=== PATIENT | female | born 2000 | race Hispanic/Latino ===

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

== ENCOUNTER 2021-03-12 19:55 | Emergency (ER) | payer OTHER, SELFPAY ==
[2021-03-12 19:59] VITALS: BP 130/84; PULSE 109; RESP 16; TEMP 37.1; O2SAT 99; BMI 28.3
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
--- NOTE | 2021-03-12 20:13 | ED_ITS ---
HPI - Chest Pain General Chief Complaint: Chest Pain Stated Complaint: chest pain Time Seen by Provider: 03/12/21 19:59 Source: patient Mode of arrival: Ambulatory Limitations: no limitations History of Present Illness HPI narrative: 21F nonsmoker with history of asthma presents with her family and the chief complaint of a reproducible, sharp and stabbing chest pain over the course of the day. She states it seems to last a few seconds to minutes and then goes away without any obvious provocation or palliation. She's no fever or chills. She denies exertional symptoms. She denies recent travel, use of control or history of clot. Related Data Previous Rx's Medication Instructions Recorded albuterol sulfate 90 mcg/actuation 0 INH Q4HP PRN #1 inh 11/13/15 aerosol inhaler (Ventolin HFA) albuterol sulfate 90 mcg/actuation 0 puff INH Q4HP PRN #1 ea 04/28/17 aerosol inhaler (Ventolin HFA) oseltamivir 75 mg capsule 75 mg PO BID #9 cap 04/28/17 albuterol sulfate 90 mcg/actuation 2 puff INHALATION Q4H PRN #1 each 03/12/21 breath activated powder inhaler Allergies Allergy/AdvReac Type Severity Reaction Status Date / Time No Known Drug Allergies Allergy Verified 11/05/20 18:06 Review of Systems Review of Systems Narrative: GENERAL: Denies chills, fatigue, malaise, fever, sweats. HEENT: Denies sinus pain, ear pain, sore throat, difficulty swallowing, dizziness. RESPIRATORY: Denies dyspnea, cough, wheezing, hemoptysis, sputum. CARDIOVASCULAR: See HPI GASTROINTESTINAL: Denies nausea, vomiting, abdominal pain, diarrhea, constipation, melena. : Denies dysuria, frequency, incontinence, hematuria, urinary retention. MUSCULOSKELETAL: denies weakness, joint pain, or bony pain SKIN: Denies rash, skin lesions, or other NEUROLOGIC: Denies weakness, headache, numbness, change in speech, confusion, seizures, incoordination. PSYCHIATRIC: No concerning psychosocial issues. 12 point review of systems is negative except for those stated above Patient History Social History Smoking Status: Never smoker Smoking Status: Never smoker alcohol intake frequency: 0-2 drinks per day Substance Use Type: does not use Exam Narrative Exam Narrative: GENERAL: [21] year old patient appears stated age. Well-developed patient, in mild distress. HEAD: Atraumatic. Normocephalic. EYES: Pupils equal round and reactive. Extraocular motions intact. No scleral icterus. No injection or drainage. ENT: Nose without bleeding, purulent drainage. Throat without erythema, tonsillar hypertrophy or exudate. Airway patent. NECK: Trachea midline. Non tender CARDIOVASCULAR: Regular rate and rhythm without murmurs, gallops, or rubs. RESPIRATORY: Clear to auscultation. Breath sounds equal bilaterally. No wheezes, rales, or rhonchi. GASTROINTESTINAL: Abdomen soft, non-tender, nondistended. EXTREMITIES: No edema or joint tenderness. BACK: Nontender without deformity or crepitance. No flank tenderness. NEURO: AOx3. SKIN: No rash or erythema of visible areas Initial Vital Signs Initial Vital Signs: Vital Signs Temperature 98.7 F 03/12/21 19:59 Pulse Rate 109 H 03/12/21 19:59 Respiratory Rate 16 03/12/21 19:59 Blood Pressure 130/84 03/12/21 19:59 Pulse Oximetry 99 03/12/21 19:59 Course Orders Ordered: Discontinued Medications Sodium Chloride (Normal Saline 0.9%) 500 mls @ 1,000 mls/hr IV BOLUS ONE Stop: 03/12/21 21:51 Last Infusion: 03/12/21 22:06 Dose: 0 mls/hr Documented by: Admin: 03/12/21 21:31 Dose: 1,000 mls/hr Documented by: AKILA Ketorolac Tromethamine (Ketorolac 30 Mg/Ml Vial) 15 mg IV NOW ONE Stop: 03/12/21 21:23 Last Admin: 03/12/21 21:31 Dose: 15 mg Documented by: AKILA Vital Signs Vital signs: Vital Signs - 8 hr 03/12/21 19:59 Temperature 98.7 F Pulse Rate 109 H Respiratory Rate 16 Blood Pressure 130/84 Pulse Oximetry 99 MDM - Chest Pain Lab Data Result diagrams: 03/12/21 20:30 03/12/21 20:30 Labs: Lab Results 03/12/21 03/12/21 03/12/21 Range/Units 20:30 20:30 20:30 WBC 8.6 (4.5-11.0) X10^3/uL RBC 4.01 (4.0-5.2) X10^6/uL Hgb 13.4 (12.0-16.0) g/dL Hct 38.1 (36-46) % MCV 95.2 (80-100) fL MCH 33.4 (26-34) PG MCHC 35.1 (30-36) % RDW 12.1 (11.6-14.8) % Plt Count 227 (150-400) X10^3/uL Neut % (Auto) 47.5 L (50-75) % Lymph % (Auto) 41.4 H (25-40) % Free[place] % (Auto) 8.2 (3-14) % Eos % (Auto) 2.4 (2-4) % Baso % (Auto) 0.5 (0-2) % Neut # (Auto) 4100 (9154-0786) /uL Lymph # (Auto) 3600 (7135-1825) /uL [place] # (Auto) 700 (0-900) /uL Eos # (Auto) 200 (0-450) /uL Baso # (Auto) 0 (0-100) /uL ESR 23 H (0-20) MM/HR D-Dimer (<230) ng/mL Sodium 141 (137-145) mmol/L Potassium 3.8 (3.4-5.1) mmol/L Chloride 107 (98-107) mmol/L Carbon Dioxide 27 (22-32) mmol/L BUN 9 (7-17) mg/dL Creatinine 0.57 (0.52-1.04) mg/dL Estimated GFR > 60.0 (>60) mL/min BUN/Creatinine Ratio 15.8 (6-22) Glucose 111 H (70-100) mg/dL Calcium 9.5 (8.4-10.2) mg/dL Total Bilirubin 0.8 (0.2-1.3) mg/dL AST 23 (14-36) IU/L ALT 17 (<35) IU/L Alkaline Phosphatase 90 (38-126) U/L Total Creatine Kinase 73 (30-135) U/L CK-MB (CK-2) TNP CK-MB (CK-2) Rel Index TNP Troponin I < 0.012 (0.01-0.034) ng/mL C-Reactive Protein (<1.0) mg/dL Total Protein 7.6 (6.3-8.2) g/dL Albumin 4.4 (3.5-5.0) g/dL Globulin 3.2 (1.7-4.1) g/dL Albumin/Globulin Ratio 1.4 (1.0-2.8) Lipase 91 (23-300) U/L 03/12/21 03/12/21 Range/Units 20:30 20:30 WBC (4.5-11.0) X10^3/uL RBC (4.0-5.2) X10^6/uL Hgb (12.0-16.0) g/dL Hct (36-46) % MCV (80-100) fL MCH (26-34) PG MCHC (30-36) % RDW (11.6-14.8) % Plt Count (150-400) X10^3/uL Neut % (Auto) (50-75) % Lymph % (Auto) (25-40) % Free[place] % (Auto) (3-14) % Eos % (Auto) (2-4) % Baso % (Auto) (0-2) % Neut # (Auto) (5568-1981) /uL Lymph # (Auto) (1487-7155) /uL [place] # (Auto) (0-900) /uL Eos # (Auto) (0-450) /uL Baso # (Auto) (0-100) /uL ESR (0-20) MM/HR D-Dimer < 200 (<230) ng/mL Sodium (137-145) mmol/L Potassium (3.4-5.1) mmol/L Chloride (98-107) mmol/L Carbon Dioxide (22-32) mmol/L BUN (7-17) mg/dL Creatinine (0.52-1.04) mg/dL Estimated GFR (>60) mL/min BUN/Creatinine Ratio (6-22) Glucose (70-100) mg/dL Calcium (8.4-10.2) mg/dL Total Bilirubin (0.2-1.3) mg/dL AST (14-36) IU/L ALT (<35) IU/L Alkaline Phosphatase (38-126) U/L Total Creatine Kinase (30-135) U/L CK-MB (CK-2) CK-MB (CK-2) Rel Index Troponin I (0.01-0.034) ng/mL C-Reactive Protein < 0.5 (<1.0) mg/dL Total Protein (6.3-8.2) g/dL Albumin (3.5-5.0) g/dL Globulin (1.7-4.1) g/dL Albumin/Globulin Ratio (1.0-2.8) Lipase (23-300) U/L MDM Narrative Medical decision making narrative: Multiple causes of chest pain considered including [place], PE, pneumothorax, pneumonia, aortic dissection, and pleurisy. Patient reports no radiation, no diaphoresis, no provocation with exertion, and no vomiting Patient's symptoms improved over duration of stay with above-stated therapies. Findings and discharge diagnosis discussed with patient/family followed by verbalization of understanding Return precautions discussed with patient/family whom verbalize understanding. Discharge Plan Departure Patient Disposition: Home Clinical Impression: Atypical chest pain Instructions: DI for Atypical Chest Pain Activity Restrictions/Additional Instructions: *You have been diagnosed with [atypical chest pain. Your history, physical exam, EKG and labs are very reassuring. There is no evidence of heart attack blood clot or pneumonia. *What to do: *Please continue to take your regular medications as directed. [ ] New medication prescriptions sent to your pharmacy: [ ] [ ] New medication written as a paper prescription [x ] No new medications given *Please follow up with your primary care provider in 2-3 days, call for an appointment. Let them know you were seen in the Emergency Department and that we ask that you be seen in follow up. We will electronically transmit a record of today's note if your PCP is in our system *If you do not have a primary care provider please contact the [facility] Resource line at [phone]. They will ask some questions about your medical history and help get you set up with a doctor in the community. *Return to Emergency Department if you should have any new, worsening or concerning symptoms, such as [fever greater than 101 F, shaking chills, worsening pain, persistent vomiting or other bothersome symptoms] Prescriptions: New albuterol sulfate 90 mcg/actuation aerosol powdr breath activated 2 puff INHALATION Q4H PRN (Reason: shortness of breath or wheezing) Qty: 1 0RF Rx Instructions: administer with spacer No Action albuterol sulfate [Ventolin HFA] 90 MCG/PUFF HFA aerosol inhaler 0 INH Q4HP PRNQty: 1 1RF oseltamivir 75 MG capsule 75 mg PO BID Qty: 9 0RF albuterol sulfate [Ventolin HFA] 90 MCG/PUFF HFA aerosol inhaler 0 puff INH Q4HP PRNQty: 1 0RF Stand Alone Forms: Work Release Note
[2021-03-12 20:32] VITALS: PULSE 96; RESP 24; O2SAT 98
[2021-03-12 20:33] VITALS: BP 114/72; PULSE 94; O2SAT 97
[2021-03-12 20:53] LABS: Alanine Aminotransferase 17 IU/L (<35); Albumin 4.4 g/dL (3.5-5.0); Albumin Globulin Ratio 1.4 (1.0-2.8); Alkaline Phosphatase 90 U/L (38-126); Aspartate Aminotransferase 23 IU/L (14-36); BUN Creatinine Ratio 15.8 (6-22); Bilirubin Total 0.8 mg/dL (0.2-1.3); Blood Urea Nitrogen 9 mg/dL (7-17); Calcium 9.5 mg/dL (8.4-10.2); Carbon Dioxide 27 mmol/L (22-32); Chloride 107 mmol/L (98-107); Creatine Kinase 73 U/L (30-135); Estimated Glomerular Filt Rate > 60.0 mL/min (>60); Globulin 3.2 g/dL (1.7-4.1); Glucose 111 mg/dL (70-100); HEMOLYSIS 16 (0-50); Lipase 91 U/L (23-300); Potassium 3.8 mmol/L (3.4-5.1); Sodium 141 mmol/L (137-145); Total Protein 7.6 g/dL (6.3-8.2)
[2021-03-12 20:55] LABS: C-Reactive Protein Quant < 0.5 mg/dL (<1.0)
[2021-03-12 21:00] VITALS: BP 111/64; PULSE 96; RESP 18; O2SAT 98
[2021-03-12 21:00] LABS: D Dimer < 200 ng/mL (<230)
[2021-03-12 21:03] LABS: Add Manual Diff / Slide Review NO; Basophils Absolute Auto 0 /uL (0-100); Basophils Percent Auto 0.5 % (0-2); Eosinophils Absolute Auto 200 /uL (0-450); Eosinophils Percent Auto 2.4 % (2-4); Hematocrit 38.1 % (36-46); Hemoglobin 13.4 g/dL (12.0-16.0); Lymphocytes Absolute Auto 3600 /uL (1100-4500); Lymphocytes Percent Auto 41.4 % (25-40); Mean Corpuscular HGB Conc 35.1 % (30-36); Mean Corpuscular Hemoglobin 33.4 PG (26-34); Mean Corpuscular Volume 95.2 fL (80-100); Monocytes Absolute Auto 700 /uL (0-900); Monocytes Percent Auto 8.2 % (3-14); Neutrophils Absolute Auto 4100 /uL (1500-7000); Neutrophils Percent Auto 47.5 % (50-75); Platelet Count 227 X10^3/uL (150-400); Red Blood Cell Count 4.01 X10^6/uL (4.0-5.2); Red Cell Distribution Width 12.1 % (11.6-14.8); White Blood Cell Count 8.6 X10^3/uL (4.5-11.0)
[2021-03-12 21:05] LABS: Troponin I < 0.012 ng/mL (0.01-0.034)
[2021-03-12 21:30] VITALS: BP 117/66; PULSE 98; RESP 25; O2SAT 98
[2021-03-12] MEDS: SODIUM CHLORIDE 0.9% 500 ML 1000 ML IV (21:31)
[2021-03-12] MEDS: KETOROLAC 30 MG/ML VIAL 15 MG IV (21:31)
[2021-03-12 21:32] LABS: Erythrocyte Sedimentation Rate 23 MM/HR (0-20)
[2021-03-12 22:00] VITALS: BP 102/58; PULSE 86; RESP 22; O2SAT 99
== END 2021-03-12 22:16 | disposition home or self-care (01) ==
PROVIDERS: Emergency Provider Emergency Medicine
DX: R07.89 Other chest pain (principal)
CPT/HCPCS: 36415; 71045; 80053; 82550; 83690; 84484; 85025; 85379; 85651; 86140; 93005; 96361; 96374; 99284; J1885

== ENCOUNTER 2022-04-15 06:50 | Emergency (ER) | payer OTHER, MEDICAID, SELFPAY ==
[2022-04-15 07:05] VITALS: BP 118/72; PULSE 116; RESP 20; TEMP 35.1; O2SAT 99
--- NOTE | 2022-04-15 07:36 | ED.URI ---
HPI - URI/Sore Throat General Chief Complaint: Upper Respiratory Symptoms Stated Complaint: sore throat, hard to swallow and eat Time Seen by Provider: 04/15/22 07:02 Source: patient Mode of arrival: Ambulatory History of Present Illness HPI Narrative: 22F nonsmoker with history of asthma presents with her mother and a chief complaint of 2-3 days of multiple upper respiratory symptoms including runny nose, nasal congestion, sore throat and dry cough. She states the sore throat and cough seem to be worse at night. She is had a fever as high as 39.5. She has been taking Tylenol and Motrin occasionally. She denies any ear pain, chest pain or shortness of breath. She has been slightly nauseated but denies any vomiting. Related Data Previous Rx's Medication Instructions Recorded albuterol sulfate 90 mcg/actuation 0 INH Q4HP PRN #1 inh 11/13/15 aerosol inhaler (Ventolin HFA) albuterol sulfate 90 mcg/actuation 0 puff INH Q4HP PRN #1 ea 04/28/17 aerosol inhaler (Ventolin HFA) oseltamivir 75 mg capsule 75 mg PO BID #9 caps 04/28/17 albuterol sulfate 90 mcg/actuation 2 puff inhalation Q4H PRN 03/12/21 breath activated powder inhaler shortness of breath or wheezing #1 ea albuterol sulfate 90 mcg/actuation 2 puff inhalation Q4H PRN 04/15/22 breath activated powder inhaler shortness of breath or wheezing #1 ea ibuprofen 600 mg tablet (IBU) 600 mg PO Q6H PRN fever or pain 04/15/22 #20 tabs Allergies Allergy/AdvReac Type Severity Reaction Status Date / Time No Known Drug Allergies Allergy Verified 11/05/20 18:06 Review of Systems Review of Systems Narrative: GENERAL: See HPI HEENT: See HPI RESPIRATORY: See HPI CARDIOVASCULAR: Denies chest pain, palpitations, orthopnea, edema, GASTROINTESTINAL: See HPI : Denies dysuria, frequency, incontinence, hematuria, urinary retention. MUSCULOSKELETAL: denies weakness, joint pain, or bony pain SKIN: Denies rash, skin lesions, or other NEUROLOGIC: Denies weakness, headache, numbness, change in speech, confusion, seizures, incoordination. PSYCHIATRIC: No concerning psychosocial issues. 12 point review of systems is negative except for those stated above Patient History Social History Smoking Status: Never smoker Smoking Status: Never smoker alcohol intake frequency: 0-2 drinks per day Substance Use Type: does not use Exam Narrative Exam Narrative: GENERAL: 22[] year old patient appears stated age. Well-developed patient, in mild distress. HEAD: Atraumatic. Normocephalic. EYES: Pupils equal round and reactive. Extraocular motions intact. No scleral icterus. No injection or drainage. ENT: Moist mucous membranes Nose without bleeding, purulent drainage. Minimal postpharyngeal erythema with noted clear drainage, no tonsillar edema, erythema, swelling or exudate NECK: Trachea midline. Non tender, no lymphadenopathy CARDIOVASCULAR: Regular rate and rhythm without murmurs, gallops, or rubs. RESPIRATORY: Clear to auscultation. Breath sounds equal bilaterally. No wheezes, rales, or rhonchi. GASTROINTESTINAL: Abdomen soft, non-tender, nondistended. EXTREMITIES: No edema or joint tenderness. BACK: Nontender without deformity or crepitance. No flank tenderness. NEURO: AOx3. SKIN: No rash or erythema of visible areas Initial Vital Signs Initial Vital Signs: Vital Signs Temperature 95.2 F L 04/15/22 07:05 Pulse Rate 116 H 04/15/22 07:05 Respiratory Rate 20 04/15/22 07:05 Blood Pressure 118/72 04/15/22 07:05 Pulse Oximetry 99 04/15/22 07:05 Oxygen Delivery Method 04/15/22 07:05 Course Vital Signs Vital signs: Vital Signs - 8 hr 04/15/22 07:05 Temperature 95.2 F L Pulse Rate 116 H Respiratory Rate 20 Blood Pressure 118/72 Pulse Oximetry 99 Oxygen Delivery Method Room Air MDM - URI/Sore Throat Lab Data Labs: Lab Results 04/15/22 Range/Units 08:10 SARS-CoV-2 (PCR) Negative (Negative) Influenza A (RT-PCR) Flu a negative (NEGATIVE) Influenza B (RT-PCR) Flu b negative (NEGATIVE) RSV (PCR) Negative (Negative) Point of Care Testing Rapid Strep A Negative [facility] Narrative Medical decision making narrative: [22-year-old female with asthma and multiple upper respiratory symptoms for the past few days.] Multiple etiologies for patient's symptoms considered including, but not limited to: [COVID, flu, strep versus other] Prior Charts reviewed: Including emergency department visit from 1 year ago for atypical chest pain Labs reviewed and interpreted by myself: Rapid strep negative, throat culture pending. No indication for antibiotics at this time Patient's symptoms improved over duration of stay with above-stated therapies. Findings and discharge diagnosis discussed with patient/family followed by verbalization of understanding Return precautions discussed with patient/family whom verbalize understanding of diagnosis and plan Discharge Plan Departure Patient Disposition: Home Clinical Impression: Viral infection Instructions: DI for Viral Upper Respiratory Infection -- Adult Activity Restrictions/Additional Instructions: *You have been diagnosed with [various symptoms due to viral upper respiratory infection]. Your strep test today was negative, however as we discussed a throat culture has been obtained and is pending, we will get results in 2-3 days, you will get a phone call if there is any positive finding that would require a change in plan. Furthermore, your respiratory panel is also pending, we will call you with positive findings *What to do: *Please consider the use of [id number] antihistamines such as cetirizine syrup which can dry the secretions that are causing many of these symptoms. As we discussed, a tsp of honey is a great option to help with cough if needed. Fever: *Fever is temperature over 101F, it is a common feature of most viral and bacterial infections *Fever tends to come back once the Tylenol (acetaminophen) or Motrin (ibuprofen) wears off as these medications do not treat the underlying cause, just the fever itself *Treat the patient, not the number. If your child is running around and playing you don?t have to treat the fever, however, if they seem grumpy or uncomfortable it is reasonable to treat fever *Consider alternating between Tylenol and Motrin so you will be giving medications prior to the previous dose wearing off: * your history and physical exam are very reassuring and there is no indication that the symptoms are due to a bacterial infection, therefore there is no indication for antibiotics. *Please follow up with your primary care provider in 2-3 days, call for an appointment. Let them know you were seen in the Emergency Department and that we ask that you be seen in follow up. We will electronically transmit a record of today's note if your PCP is in our system *If you do not have a primary care provider please contact the [facility] Resource line at [phone]. They will ask some questions about your medical history and help get you set up with a doctor in the community. *Return to Emergency Department if you should have any new, worsening or concerning symptoms increased work of breathing with flaring of nostrils, using belly to breathe, persistent vomiting, or other bothersome symptoms Prescriptions: New ibuprofen [IBU] 600 mg tablet 600 mg PO Q6H PRN (Reason: fever or pain) Qty: 20 0RF albuterol sulfate 90 mcg/actuation aerosol powdr breath activated 2 puff inhalation Q4H PRN (Reason: shortness of breath or wheezing) Qty: 1 0RF Rx Instructions: administer with spacer No Action albuterol sulfate [Ventolin HFA] 90 MCG/PUFF HFA aerosol inhaler 0 INH Q4HP PRNQty: 1 1RF oseltamivir 75 MG capsule 75 mg PO BID Qty: 9 0RF albuterol sulfate [Ventolin HFA] 90 MCG/PUFF HFA aerosol inhaler 0 puff INH Q4HP PRNQty: 1 0RF albuterol sulfate 90 mcg/actuation aerosol powdr breath activated 2 puff INHALATION Q4H PRN (Reason: shortness of breath or wheezing) Qty: 1 0RF Rx Instructions: administer with spacer Stand Alone Forms: Patient Portal/API, Work Release Note
[2022-04-15 08:18] VITALS: BP 120/69; PULSE 104; RESP 18; O2SAT 104
[2022-04-15 09:04] LABS: Influenza A - CEPHEID Flu A NEGATIVE (NEGATIVE); Influenza B - CEPHEID Flu B NEGATIVE (NEGATIVE); Respiratory Syncytial Virus Negative (Negative)
[2022-04-15 09:38] LABS: COVID-19 CEPHEID 4-PLEX PCR Negative (Negative)
== END 2022-04-15 08:18 | disposition home or self-care (01) ==
PROVIDERS: Emergency Provider Emergency Medicine
DX: B34.9 Viral infection, unspecified (principal); Z20.822 Contact with and (suspected) exposure to COVID-19
CPT/HCPCS: 0241U; 87070; 87880; 99282

== ENCOUNTER 2022-10-06 20:41 | Emergency (ER) | payer OTHER, MEDICAID, SELFPAY ==
[2022-10-06 20:46] VITALS: BP 117/75; PULSE 102; RESP 18; TEMP 36.4; O2SAT 98; BMI 27.4
[2022-10-06] MEDS: ALBUTEROL/IPRATROPIUM 3 ML AMPUL INH (21:37)
[2022-10-06] MEDS: predniSONE 20 MG TABLET 40 MG PO (21:51)
[2022-10-06 22:48] LABS: Adenovirus Not Detected (Not Detect); B. parapertussis Not Detected (Not Detecte); Bordetella pertussis Not Detected (Not Detecte); Chlamydophila pneumoniae Not Detected (Not Detect); Coronavirus 229E Not Detected (Not Detect); Coronavirus HKU1 Not Detected (Not Detect); Coronavirus NL 63 Not Detected (Not Detect); Coronavirus OC43 Not Detected (Not Detect); Human Metapneumovirus Not Detected (Not Detect); Human Rhinovirus/Enterovirus Not Detected (Not Detect); Influenza A Not Detected (Not Detect); Influenza B Not Detected (Not Detect); Mycoplasma pneumoniae Not Detected (Not Detect); Parainfluenza Virus 1 Not Detected (Not Detect); Parainfluenza Virus 2 Not Detected (Not Detect); Parainfluenza Virus 3 Not Detected (Not Detect); Parainfluenza Virus 4 Not Detected (Not Detect); Respiratory Syncytial Virus Not Detected (Not Detect); SARS- CoV-2 Not Detected (Not Detecte)
--- NOTE | 2022-10-07 02:31 | ED_ITS ---
HPI - Asthma General Chief Complaint: Asthma Stated Complaint: cough, asthma Time Seen by Provider: 10/06/22 20:47 Source: patient and family Mode of arrival: Ambulatory History of Present Illness HPI Narrative: 22-year-old female nonsmoker with history of asthma presents with her mother for evaluation of dry hacking cough and wheezing over the past few days. She denies runny nose or sore throat but did have a sore throat about a week ago. She denies sputum production and has no fever or chills. She denies nausea, vomiting or diarrhea. Related Data Previous Rx's Medication Instructions Recorded albuterol sulfate 90 mcg/actuation 0 INH Q4HP PRN #1 inh 11/13/15 aerosol inhaler (Ventolin HFA) albuterol sulfate 90 mcg/actuation 0 puff INH Q4HP PRN #1 ea 04/28/17 aerosol inhaler (Ventolin HFA) oseltamivir 75 mg capsule 75 mg PO BID #9 caps 04/28/17 albuterol sulfate 90 mcg/actuation 2 puff inhalation Q4H PRN 03/12/21 breath activated powder inhaler shortness of breath or wheezing #1 ea albuterol sulfate 90 mcg/actuation 2 puff inhalation Q4H PRN 04/15/22 breath activated powder inhaler shortness of breath or wheezing #1 ea ibuprofen 600 mg tablet (IBU) 600 mg PO Q6H PRN fever or pain 04/15/22 #20 tabs benzonatate 200 mg capsule 200 mg PO BID PRN cough #20 caps 10/06/22 prednisone 20 mg tablet 20 mg PO DAILY #5 tabs 10/06/22 Allergies Allergy/AdvReac Type Severity Reaction Status Date / Time No Known Drug Allergies Allergy Verified 11/05/20 18:06 Review of Systems Review of Systems Narrative: GENERAL: See HPI HEENT: See HPI RESPIRATORY: See HPI CARDIOVASCULAR: Denies chest pain, palpitations, orthopnea, edema, GASTROINTESTINAL: Denies nausea, vomiting, abdominal pain, diarrhea, constipation, melena. : Denies dysuria, frequency, incontinence, hematuria, urinary retention. MUSCULOSKELETAL: denies weakness, joint pain, or bony pain SKIN: Denies rash, skin lesions, or other NEUROLOGIC: Denies weakness, headache, numbness, change in speech, confusion, seizures, incoordination. PSYCHIATRIC: No concerning psychosocial issues. 12 point review of systems is negative except for those stated above Patient History Social History Smoking Status: Never smoker Smoking Status: Never smoker alcohol intake frequency: 0-2 drinks per day Substance Use Type: does not use Exam Narrative Exam Narrative: GEN: AOx3 and in mild distress EYES: Pupils are equal, round, and reactive to light and accommodation. Extraoccular muscles are intact bilaterally. There is no subconjunctival hemorrhage or exudate. CHEST: Lungs are clear to auscultation bilaterally and free of wheezes, rales, or rhonchi. Heart rate is regular rhythm, there are no murmurs, clicks, rubs, or gallops. There is no chest wall tenderness. ABD: Abdomen is soft and nontender. There is no guarding or rebound. Bowel sounds are normal in all 4 quadrants. There is no mass or organomegaly. EXT: Full painless ROM of all extremities with no loss of sensation or strength. SKIN: Warm, pink, and dry. No erythema or rash Initial Vital Signs Initial Vital Signs: Vital Signs Temperature 97.6 F 10/06/22 20:46 Pulse Rate 102 H 10/06/22 20:46 Respiratory Rate 18 10/06/22 20:46 Blood Pressure 117/75 10/06/22 20:46 Pulse Oximetry 98 10/06/22 20:46 Oxygen Delivery Method Room Air 10/06/22 20:46 Course Orders Ordered: ED Orders 10/06/22 21:35 Respiratory Panel (Film Array) Stat Discontinued Medications Albuterol/Ipratropium (Albuterol/Ipratropium 3 Ml Ampul) 3 ml INH NOW ONE Stop: 10/06/22 21:31 Last Admin: 10/06/22 21:37 Dose: 3 ml Documented By: Prednisone (Prednisone 20 Mg Tablet) 40 mg PO NOW ONE Stop: 10/06/22 21:31 Last Admin: 10/06/22 21:51 Dose: 40 mg Documented By: EM Reevaluation(s) Reevaluation #1: Though patient had no wheezing she does feel a bit better after DuoNeb. Respiratory therapy has given her a chamber Vital Signs Vital signs: Vital Signs - 8 hr 10/06/22 20:46 Temperature 97.6 F Pulse Rate 102 H Respiratory Rate 18 Blood Pressure 117/75 Pulse Oximetry 98 Oxygen Delivery Method Room Air MDM - Asthma Lab Data Labs: Lab Results 10/06/22 Range/Units 21:35 Chlamy pneumoniae PCR Not detected (Not Detect) Adenovirus (PCR) Not detected (Not Detect) B. pertussis DNA (PCR) Not detected (Not Detecte) B.parapertussis DNA PCR Not detected (Not Detecte) Coronavirus OC43 (PCR) Not detected (Not Detect) Coronavirus HKU1 (PCR) Not detected (Not Detect) Coronavirus 229E (PCR) Not detected (Not Detect) SARS-CoV-2 (PCR) Not detected (Not Detecte) Coronavirus NL63 (PCR) Not detected (Not Detect) Human Metapneumovir PCR Not detected (Not Detect) Influenza Type A (PCR) Not detected (Not Detect) Influenza Type B (PCR) Not detected (Not Detect) M. pneumoniae (PCR) Not detected (Not Detect) Parainfluenza 1 (PCR) Not detected (Not Detect) Parainfluenza 2 (PCR) Not detected (Not Detect) Parainfluenza 3 (PCR) Not detected (Not Detect) Parainfluenza 4 (PCR) Not detected (Not Detect) RSV (PCR) Not detected (Not Detect) Entero/Rhino (PCR) Not detected (Not Detect) MDM Narrative Medical decision making narrative: [22] year old patient presents with dry cough Multiple etiologies for patient's symptoms considered including, but not limited to: [Asthma exacerbation versus viral upper respiratory infection versus other] Prior Charts reviewed in our EMR Primary Historian: patient Patient's symptoms improved over duration of stay with above-stated therapies. Findings and discharge diagnosis discussed with patient/family followed by verbalization of understanding Return precautions discussed with patient/family whom verbalize understanding of diagnosis and plan Discharge Plan Departure Patient Disposition: Home Clinical Impression: Asthma with acute exacerbation Instructions: DI for Asthma -- Adult Activity Restrictions/Additional Instructions: *You have been diagnosed with [asthma exacerbation] *What to do: *Please continue to take your regular medications as directed. Also please consider getting an over the counter antihistamine such as Zyrtec, Kymberly, or Claritin which can help dry the secretions that are likely contributing to your cough. [x ] New medication prescriptions sent to your pharmacy: [[facility] ] [ ] New medication written as a paper prescription [ ] No new medications given *You have a viral respiratory panel pending, I will call you with any abnormal results *Please follow up with your primary care provider in 2-3 days, call for an appointment. Let them know you were seen in the Emergency Department and that we ask that you be seen in follow up. We will electronically transmit a record of today's note if your PCP is in our system *If you do not have a primary care provider please contact the [facility] Resource line at [phone]. They will ask some questions about your medical history and help get you set up with a doctor in the community. *Return to Emergency Department if you should have any new, worsening or concerning symptoms, such as [fever greater than 101 F, shaking chills, worsening pain, persistent vomiting or other bothersome symptoms] Prescriptions: New benzonatate 200 mg capsule 200 mg PO BID PRN (Reason: cough) Qty: 20 0RF prednisone 20 mg tablet 20 mg PO DAILY Qty: 5 0RF Rx Instructions: administer with food or milk No Action albuterol sulfate [Ventolin HFA] 90 MCG/PUFF HFA aerosol inhaler 0 INH Q4HP PRNQty: 1 1RF oseltamivir 75 MG capsule 75 mg PO BID Qty: 9 0RF albuterol sulfate [Ventolin HFA] 90 MCG/PUFF HFA aerosol inhaler 0 puff INH Q4HP PRNQty: 1 0RF albuterol sulfate 90 mcg/actuation aerosol powdr breath activated 2 puff INHALATION Q4H PRN (Reason: shortness of breath or wheezing) Qty: 1 0RF Rx Instructions: administer with spacer ibuprofen [IBU] 600 mg tablet 600 mg PO Q6H PRN (Reason: fever or pain) Qty: 20 0RF albuterol sulfate 90 mcg/actuation aerosol powdr breath activated 2 puff inhalation Q4H PRN (Reason: shortness of breath or wheezing) Qty: 1 0RF Rx Instructions: administer with spacer Stand Alone Forms: Patient Portal/API
== END 2022-10-06 22:04 | disposition home or self-care (01) ==
PROVIDERS: Emergency Provider Emergency Medicine
DX: J45.901 Unspecified asthma with (acute) exacerbation (principal)
CPT/HCPCS: 87633; 94640; 99283